=== PATIENT | female | born 1995 | race Caucasian/White ===

== ENCOUNTER 2022-07-07 08:03 | Outpatient (CLI) | payer OTHER, SELFPAY ==
[2022-07-07 08:28] LABS: Alanine Aminotransferase 24 U/L (6-35); Albumin Level 4.7 g/dL (3.5-5.1); Alkaline Phosphatase 50 U/L (38-126); Anion Gap 6 mmol/L (8-16); Aspartate Amino Transferase 36 U/L (14-36); Bilirubin,Total 0.6 mg/dL (0.2-1.3); Blood Urea Nitrogen 11 mg/dL (7-17); Calcium 9.2 mg/dL (8.4-10.2); Carbon Dioxide 31 mmol/L (22-30); Chloride 104 mmol/L (98-107); Cholesterol 203 mg/dL (0-200); Estimated Glomerular Filt Rate > 60; Glucose 89 mg/dL (65-110); HDL Direct 94 mg/dL; Potassium 4.2 mmol/L (3.4-5.0); Sodium 141 mmol/L (137-145); Triglycerides 68 mg/dL (<150)
[2022-07-07 08:41] LABS: LDL Cholesterol Direct 69 mg/dL
[2022-07-10 13:37] LABS: Insulin Level Total 4.2 uIU/mL (<=19.6)
== END 2022-07-07 08:04 | disposition home or self-care (01) ==
PROVIDERS: Visit Provider Registered Nurse
DX: N91.2 Amenorrhea, unspecified (principal)
CPT/HCPCS: 36415; 80053; 80061; 83525

== ENCOUNTER 2022-07-20 16:41 | Outpatient (CLI) | payer OTHER, SELFPAY ==
[2022-07-23 12:19] LABS: DHEA-Sulfate 291 mcg/dL (18-391)
== END 2022-07-20 16:42 | disposition home or self-care (01) ==
PROVIDERS: Visit Provider Registered Nurse
DX: E28.2 Polycystic ovarian syndrome (principal)
CPT/HCPCS: 36415; 82627

== ENCOUNTER 2022-07-29 17:04 | Outpatient (CLI) | payer OTHER, SELFPAY | END 2022-07-29 17:05 | disposition home or self-care (01) | LOC: ANHLAB 17:06 | PROVIDERS: Visit Provider Registered Nurse | DX: N91.2 Amenorrhea, unspecified (principal); E28.2 Polycystic ovarian syndrome | CPT/HCPCS: 36415; 83498 ==